=== PATIENT | male | born 1980 | race African-American/Black ===

== ENCOUNTER 2022-02-03 12:49 | Inpatient (IN) | payer OTHER ==
[2022-02-03 14:07] VITALS: BMI 26.3
[2022-02-03] MEDS ORDERED: BISMUTH SUBSALICYLATE 524 MG/30 ML PO PRN (16:20)
[2022-02-03] MEDS ORDERED: IBUPROFEN 400 MG TABLET (FP) PO PRN (16:20)
[2022-02-03] MEDS ORDERED: ACETAMINOPHEN 325 MG TABLET (FP) PO PRN ×2 (16:20)
[2022-02-03] MEDS ORDERED: LOPERAMIDE HCL 2 MG CAPSULE PO PRN (16:20)
[2022-02-03] MEDS ORDERED: MAGNESIUM HYDROX 2400MG/30ML ORAL SUSPENSION 30 ML CUP PO PRN (16:20)
[2022-02-03] MEDS ORDERED: MAG HYDROX/AL HYDROX/SIMETH 30 ML UNIT-DOSE CUP PO PRN (16:20)
[2022-02-03] MEDS ORDERED: DICYCLOMINE HCL 10 MG CAPSULE PO PRN (16:20)
[2022-02-03] MEDS ORDERED: ONDANSETRON *ODT* 4 MG TABLET SL PRN (16:20)
[2022-02-03] MEDS ORDERED: NALOXONE HCL (KLOXXADO) 8 MG SPRAY NS PRN (16:20)
[2022-02-03] MEDS ORDERED: BENZOCAINE/MENTHOL (CHLORASEPTIC ) LOZENGE MM PRN (16:20)
[2022-02-03] MEDS ORDERED: MAGNESIUM CITRATE 300 ML BOTTLE PO PRN (16:20)
[2022-02-03] MEDS ORDERED: NICOTINE 10 MG CARTRIDGE (INHALER) IH PRN (16:20)
[2022-02-03] MEDS ORDERED: methaDONE HCL 10 MG TABLET (FOR DETOX USE ONLY) PO ONE (16:24)
[2022-02-03] MEDS ORDERED: hydrOXYzine PAMOATE 25 MG CAPSULE (FP) PO SCH (18:00)
[2022-02-03] MEDS: chlordiazePOXIDE HCL 25 MG CAPSULE PO SCH ×2 (18:42→22:27)
[2022-02-03] MEDS: NICOTINE 21 MG/24 HOURS TOPICAL PATCH TD SCH (18:44)
[2022-02-03] MEDS: chlordiazePOXIDE HCL 25 MG CAPSULE PO PRN (20:53)
[2022-02-03] MEDS ORDERED: MELATONIN 5 MG TABLETS PO SCH (22:00)
[2022-02-03] MEDS: diphenhydrAMINE HCL 25 MG CAPSULE (FP) PO PRN (22:27)
[2022-02-03] MEDS: THIAMINE HCL 100 MG TABLET (FP) PO SCH (22:27)
[2022-02-04] MEDS: chlordiazePOXIDE HCL 25 MG CAPSULE PO SCH ×4 (05:28→22:01)
[2022-02-04] MEDS: cloNIDine HCL 0.1 MG TABLET PO PRN ×2 (10:22→18:03)
[2022-02-04] MEDS: NICOTINE 21 MG/24 HOURS TOPICAL PATCH TD SCH (10:22)
[2022-02-04] MEDS: METHOCARBAMOL 500 MG TABLET PO PRN (10:22)
[2022-02-04] MEDS: PRENATAL VITAMINS W/ FOLIC ACID TABLET (FP) PO SCH (10:23)
[2022-02-04 12:33] LABS: HEMATOCRIT 40.2 % (35.4-49); MCH 27.2 pg (25.7-33.7); MCHC 32.4 g/dl (32.0-35.9); MEAN CELL VOLUME 83.8 fl (80-96); MEAN PLT VOLUME 7.4 fl (7.5-11.1); PLATELET COUNT 315 10^3/uL (134-434); RDW 16.6 % (11.9-15.9); WHITE BLOOD COUNT 4.3 K/mm3 (4.0-10.0)
[2022-02-04 12:44] LABS: BLOOD UREA NITROGEN 11.5 mg/dL (7-18)
[2022-02-04 12:45] LABS: ALBUMIN 3.5 g/dl (3.4-5.0)
[2022-02-04 12:48] LABS: BILIRUBIN,TOTAL 0.3 mg/dL (0.2-1)
[2022-02-04 13:01] LABS: TOT PROT 7.1 g/dl (6.4-8.2)
[2022-02-04] MEDS ORDERED: COLLOIDAL OATMEAL 1 BAR EACH TP PRN (15:40)
[2022-02-04] MEDS: THIAMINE HCL 100 MG TABLET (FP) PO SCH (22:01)
[2022-02-04] MEDS: SUVOREXANT 10 MG TABLET PO PRN (22:04)
[2022-02-05] MEDS: chlordiazePOXIDE HCL 25 MG CAPSULE PO SCH ×4 (05:28→22:06)
[2022-02-05] MEDS ORDERED: methaDONE HCL 10 MG TABLET (FOR DETOX USE ONLY) PO ONE (10:00)
[2022-02-05] MEDS: NICOTINE 21 MG/24 HOURS TOPICAL PATCH TD SCH (10:03)
[2022-02-05] MEDS: PRENATAL VITAMINS W/ FOLIC ACID TABLET (FP) PO SCH (10:03)
[2022-02-05] MEDS: cloNIDine HCL 0.1 MG TABLET PO PRN ×2 (10:07→22:05)
[2022-02-05] MEDS: diphenhydrAMINE HCL 25 MG CAPSULE (FP) PO PRN (12:15)
[2022-02-05] MEDS: chlordiazePOXIDE HCL 25 MG CAPSULE PO PRN (12:16)
[2022-02-05] MEDS: IBUPROFEN 600 MG TABLET (FP) PO PRN (16:25)
[2022-02-05] MEDS: SUVOREXANT 10 MG TABLET PO PRN (22:04)
[2022-02-05] MEDS: THIAMINE HCL 100 MG TABLET (FP) PO SCH (22:06)
[2022-02-06] MEDS ORDERED: chlordiazePOXIDE HCL 10 MG CAPSULE PO PRN
[2022-02-06] MEDS: chlordiazePOXIDE HCL 10 MG CAPSULE PO SCH ×4 (06:05→22:07)
[2022-02-06] MEDS: diphenhydrAMINE HCL 25 MG CAPSULE (FP) PO PRN ×2 (06:08→17:15)
[2022-02-06] MEDS: PRENATAL VITAMINS W/ FOLIC ACID TABLET (FP) PO SCH (10:31)
[2022-02-06] MEDS: NICOTINE 21 MG/24 HOURS TOPICAL PATCH TD SCH (10:31)
[2022-02-06] MEDS: METHOCARBAMOL 500 MG TABLET PO PRN ×2 (10:37→17:15)
[2022-02-06] MEDS ORDERED: cloNIDine HCL 0.1 MG TABLET PO ONE (13:30)
[2022-02-06] MEDS: THIAMINE HCL 100 MG TABLET (FP) PO SCH (22:07)
[2022-02-06] MEDS: cloNIDine HCL 0.1 MG TABLET PO SCH (22:07)
[2022-02-06] MEDS: SUVOREXANT 10 MG TABLET PO PRN (22:08)
[2022-02-07] MEDS: chlordiazePOXIDE HCL 10 MG CAPSULE PO SCH ×2 (05:17→17:30)
[2022-02-07] MEDS: diphenhydrAMINE HCL 25 MG CAPSULE (FP) PO PRN ×3 (05:19→22:07)
[2022-02-07] MEDS: METHOCARBAMOL 500 MG TABLET PO PRN ×3 (05:19→17:31)
[2022-02-07 06:19] VITALS: RESP 18
[2022-02-07] MEDS ORDERED: methaDONE HCL 10 MG TABLET (FOR DETOX USE ONLY) PO ONE (10:00)
[2022-02-07] MEDS: cloNIDine HCL 0.1 MG TABLET PO SCH ×2 (10:26→22:07)
[2022-02-07] MEDS: NICOTINE 21 MG/24 HOURS TOPICAL PATCH TD SCH (10:27)
[2022-02-07] MEDS: PRENATAL VITAMINS W/ FOLIC ACID TABLET (FP) PO SCH (10:27)
[2022-02-07] MEDS: IBUPROFEN 600 MG TABLET (FP) PO PRN (19:27)
[2022-02-07] MEDS: THIAMINE HCL 100 MG TABLET (FP) PO SCH (22:07)
[2022-02-07] MEDS ORDERED: SUVOREXANT 10 MG TABLET PO ONE (23:00)
[2022-02-08] MEDS ORDERED: chlordiazePOXIDE HCL 10 MG CAPSULE PO ONE (05:00)
[2022-02-08 06:25] VITALS: BP 117/57; PULSE 73; TEMP 97.1
[2022-02-08] MEDS: NICOTINE 21 MG/24 HOURS TOPICAL PATCH TD SCH (10:49)
[2022-02-08] MEDS: PRENATAL VITAMINS W/ FOLIC ACID TABLET (FP) PO SCH (10:49)
[2022-02-08] MEDS: cloNIDine HCL 0.1 MG TABLET PO SCH (10:49)
== END 2022-02-08 09:50 | disposition home or self-care (01) | DRG 773 ==
LOC: YASAS 12:49 → Y6N 16:41
PROVIDERS: ADMIT Allergy & Immunology; ATTEND Surgery
PROC: HZ2ZZZZ Detoxification Services for Substance Abuse Treatment (ICD-10-PCS; principal; 2022-02-03)
DX: F11.23 Opioid dependence with withdrawal (principal); F10.230 Alcohol dependence with withdrawal, uncomplicated; F14.20 Cocaine dependence, uncomplicated; F17.210 Nicotine dependence, cigarettes, uncomplicated; F19.280 Other psychoactive substance dependence with psychoactive substance-induced anxiety disorder; F19.282 Other psychoactive substance dependence with psychoactive substance-induced sleep disorder; F43.10 Post-traumatic stress disorder, unspecified; I10 Essential (primary) hypertension; Z86.79 Personal history of other diseases of the circulatory system; Z86.69 Personal history of other diseases of the nervous system and sense organs; Z87.828 Personal history of other (healed) physical injury and trauma
CPT/HCPCS: 36415; 80053; 85027; 86780; 93005; 93010; C9803-CS; U0003; U0005